=== PATIENT | female | born 1975 | race Two or more races ===

== ENCOUNTER 2024-01-06 04:25 | Inpatient (IN) | payer OTHER, MEDICAID ==
[~2024-01-06] VITALS: Ht 154.9 cm; Wt 82.2 kg
[2024-01-06 05:02] LABS: Urine Bacteria None Seen /hpf (None Seen)
[2024-01-06 05:11] LABS: Basophils # (auto) 0 10 ^3/uL (0-0.2); Basophils % (auto) 0.1 % (0.0-2.0); Eosinophils # (auto) 0.1 10 ^3/uL (0-0.8); Hematocrit 38.3 % (36.0-46.0); Hemoglobin 12.4 g/dL (12.2-16.2); Lymphocytes # (auto) 1.1 10 ^3/uL (0.4-5.4); Lymphocytes % (auto) 7.3 % (10.0-50.0); Mean Corpuscular Hemoglobin 27.6 pg (28.0-32.0); Mean Corpuscular Hgb Conc. 32.4 g/dL (32.0-36.0); Mean Corpuscular Volume 85.4 fL (80.0-100.0); Monocytes # (auto) 0.9 10 ^3/uL (0-1.3); Monocytes % (auto) 5.7 % (0.0-12.0); Neutrophils # (auto) 12.8 10 ^3/uL (1.6-8.6); Neutrophils % (auto) 85.9 % (37.0-80.0); Red Blood Cells 4.48 10^6/uL (4.0-5.20); Red Cell Distribution Width 14.8 % (11.8-14.3); White Blood Cell 14.9 10^3/uL (4.4-10.8)
[2024-01-06 05:16] LABS: Urine Blood Negative /uL (Negative); Urine Clarity Clear (Clear); Urine Color Yellow (Yellow); Urine Hyaline Cast FEW /lpf (0 - 2); Urine Mucus FEW (None Seen); Urine Protein, UAD 3+ (Negative); Urine Specific Gravity 1.031 (1.001-1.035); Urine Urobilinogen Normal (Negative); Urine WBC 5 /hpf (0 - 5)
[2024-01-06 05:42] LABS: Alanine Aminotransferase 16 U/L (7-40); Albumin 3.8 g/dL (3.2-4.8); Alkaline Phosphatase 153 U/L (46-116); Anion Gap 6 (5-15); Aspartate Aminotransferase 19 U/L (13-40); BUN/Creatinine Ratio 28.3 (10.0-20.0); Bilirubin, Total 0.4 mg/dL (0.2-1.0); Blood Urea Nitrogen 15 mg/dL (9-23); Calcium 9.5 mg/dL (8.7-10.4); Carbon Dioxide 28 mmol/L (20-30); Chloride 107 mmol/L (98-107); Glucose 106 mg/dL (74-106); Lipase 60 U/L (12-53); Potassium 3.9 mmol/L (3.5-5.1); Sodium 141 mmol/L (136-145); Total Protein 6.7 g/dL (5.7-8.2)
[2024-01-06] MEDS: ONDANSETRON HCL 4 MG/2 ML VIAL IV ONE (06:26)
[2024-01-06] MEDS: PANTOPRAZOLE 40 MG/10 ML VIAL INJ IV ONE (06:26)
[2024-01-06 06:38] VITALS: PULSE 87; RESP 15; O2SAT 99
[2024-01-06 07:30] VITALS: PULSE 87; RESP 13; O2SAT 99
[2024-01-06] MEDS: cefTRIAXone 1GM/50ML D5W 50 ML IV ONE (08:52)
[2024-01-06] MEDS: SODIUM CHLORIDE 0.9% 1,000 ML IV ONE (08:52)
[2024-01-06] MEDS: metroNIDAZOLE 500MG/100ML 100 ML IV ONE (09:22)
[2024-01-06] MEDS ORDERED: SODIUM CHLORIDE 0.9% 1,000 ML IV SCH (09:30)
[2024-01-06] MEDS ORDERED: DOCUSATE SOD 100 MG CAP PO PRN (09:30)
[2024-01-06] MEDS: PANTOPRAZOLE 40 MG/10 ML VIAL INJ IV SCH (10:08)
[2024-01-06 11:15] VITALS: BP 121/65; PULSE 75; RESP 16; TEMP 97.9; O2SAT 99
[2024-01-06] MEDS: metroNIDAZOLE 500MG/100ML 100 ML IV SCH (15:29)
[2024-01-06] MEDS: ONDANSETRON HCL 4 MG/2 ML VIAL IV PRN (15:29)
[2024-01-06] MEDS: SODIUM CHLORIDE 0.9% 1,000 ML IV SCH (15:36)
[2024-01-06 16:00] VITALS: BP 131/75; PULSE 71; RESP 16; TEMP 98.4; O2SAT 100
[2024-01-06 21:00] VITALS: BP 132/67; PULSE 76; RESP 14; TEMP 98.3; O2SAT 100
[2024-01-07 01:00] VITALS: BP 147/78; PULSE 88; RESP 14; TEMP 98.4; O2SAT 98
[2024-01-07] MEDS ORDERED: LEVO175T4 PO (02:29)
[2024-01-07] MEDS ORDERED: HYDR200T36 PO (02:29)
[2024-01-07] MEDS ORDERED: CHOL20007 PO (02:29)
[2024-01-07] MEDS ORDERED: LISI-275 PO (02:29)
[2024-01-07] MEDS ORDERED: MYCO1TAB2 PO (02:29)
[2024-01-07] MEDS ORDERED: POTA-36 PO (02:29)
[2024-01-07] MEDS ORDERED: SIMV10TA20 PO (02:29)
[2024-01-07 05:00] VITALS: BP 148/85; PULSE 72; RESP 14; TEMP 98.3; O2SAT 96
[2024-01-07 07:32] LABS: Basophils # (auto) 0 10 ^3/uL (0-0.2); Basophils % (auto) 0.3 % (0.0-2.0); Eosinophils # (auto) 0.1 10 ^3/uL (0-0.8); Eosinophils % (auto) 2.6 % (0.0-7.0); Hematocrit 35.9 % (36.0-46.0); Hemoglobin 11.6 g/dL (12.2-16.2); Lymphocytes # (auto) 2.1 10 ^3/uL (0.4-5.4); Lymphocytes % (auto) 35.7 % (10.0-50.0); Mean Corpuscular Hemoglobin 28.1 pg (28.0-32.0); Mean Corpuscular Hgb Conc. 32.5 g/dL (32.0-36.0); Mean Corpuscular Volume 86.5 fL (80.0-100.0); Monocytes # (auto) 0.5 10 ^3/uL (0-1.3); Neutrophils # (auto) 3.1 10 ^3/uL (1.6-8.6); Neutrophils % (auto) 53.4 % (37.0-80.0); Nucleated Red Blood Cells % 0.1 %; Red Blood Cells 4.15 10^6/uL (4.0-5.20); Red Cell Distribution Width 14.7 % (11.8-14.3); White Blood Cell 5.8 10^3/uL (4.4-10.8)
[2024-01-07 07:45] LABS: Alanine Aminotransferase 14 U/L (7-40); Albumin 3.2 g/dL (3.2-4.8); Alkaline Phosphatase 131 U/L (46-116); Anion Gap 5 (5-15); Aspartate Aminotransferase 21 U/L (13-40); BUN/Creatinine Ratio 17.4 (10.0-20.0); Bilirubin, Total 0.4 mg/dL (0.2-1.0); Blood Urea Nitrogen 8 mg/dL (9-23); Calcium 8.8 mg/dL (8.5-10.1); Carbon Dioxide 26 mmol/L (20-30); Chloride 112 mmol/L (98-107); Glucose 82 mg/dL (74-106); Sodium 143 mmol/L (136-145); Total Protein 5.8 g/dL (5.7-8.2)
[2024-01-07 07:55] LABS: Lipase 58 U/L (12-53)
[2024-01-07] MEDS: cefTRIAXone 1GM/50ML D5W 50 ML IV SCH (08:47)
[2024-01-07 09:00] VITALS: BP 136/79; PULSE 79; RESP 18; TEMP 98.6; O2SAT 98
[2024-01-07 12:00] VITALS: BP 139/81; PULSE 77; RESP 20; TEMP 97.5; O2SAT 99
[2024-01-07 16:00] VITALS: BP 155/79; PULSE 69; RESP 20; TEMP 97.5; O2SAT 99
[2024-01-07] MEDS: MORPHINE SULFATE INJ 2 MG/ml SYRG IV PRN (20:38)
[2024-01-07 21:00] VITALS: BP 144/81; PULSE 80; RESP 18; TEMP 98; O2SAT 98
[2024-01-08 00:38] VITALS: BP 143/77; PULSE 56; RESP 18; TEMP 97.7; O2SAT 100
[2024-01-08 05:00] VITALS: BP 139/76; PULSE 57; RESP 18; TEMP 97.8; O2SAT 100
[2024-01-08 08:30] VITALS: BP 155/79; PULSE 63; RESP 17; TEMP 97.9; O2SAT 100
[2024-01-08] MEDS ORDERED: ZOFR4T PO (08:45)
[2024-01-08] MEDS ORDERED: PANT40T PO (08:45)
[2024-01-08 09:20] VITALS: TEMP 36.6
== END 2024-01-08 10:15 | disposition home or self-care (01) | DRG 439 ==
LOC: ER 04:25 → OVERFLOW 10:08 → CENTRAL 11:00
PROVIDERS: ADMIT Nurse Practitioner Family; ATTEND Family Medicine
DX: K85.90 Acute pancreatitis without necrosis or infection, unspecified (principal); R65.10 Systemic inflammatory response syndrome (SIRS) of non-infectious origin without acute organ dysfunction; I12.9 Hypertensive chronic kidney disease with stage 1 through stage 4 chronic kidney disease, or unspecified chronic kidney disease; N18.9 Chronic kidney disease, unspecified; E03.9 Hypothyroidism, unspecified; K76.0 Fatty (change of) liver, not elsewhere classified; R16.0 Hepatomegaly, not elsewhere classified; Z86.73 Personal history of transient ischemic attack (TIA), and cerebral infarction without residual deficits; Z98.84 Bariatric surgery status
CPT/HCPCS: 36415; 76705; 80053; 81001; 83605; 83690; 85025; 87040; C9113; G0378; J2405; J3490